=== PATIENT | female | born 1990 ===

== ENCOUNTER 2018-04-03 13:42 | Emergency (ER) | payer BC ==
[2018-04-03 14:48] LABS: SQUAMOUS EPITHIAL 2 /hpf (0-5); URINE BACTERIA MANY (<OCC); URINE BILIRUBIN NEGATIVE (NEGATIVE); URINE BLOOD NEGATIVE (NEGATIVE); URINE CLARITY Hazy (Clear); URINE COLOR Yellow (YELLOW); URINE GLUCOSE (UA) NORMAL (Normal); URINE LEUKOCYTE ESTERASE 1+ Leu/uL (Negative); URINE PROTEIN NEGATIVE (NEGATIVE); URINE UROBILINOGEN NORMAL mg/dL (0.2-1.0)
--- NOTE | 2018-04-03 15:45 | OBHP ---
Datetime: 04/03/2018 14:47 IP Adm Impression: , intrauterine ; No Active Labor; Intact Membranes IP Chief Complaint Other: breech per OBGYN, BPP and NST requested IP Admit Plan: Discharge home Admit Comment, IP Provider: 27 year old at 37.6 wga by first trimester ultrasound presents t o triage per request by her OBGYN physician due to his concerns for breech presentation requesting BP P and NST. Patient is feeling movement as usual, denies vaginal fluid, denies vaginal bleed. eHrb randle does not feel abdominal tightness or pain. Patient's course has been overall unremarka ble with the exception of pedal edema. Upon questioning, patient's states she had an ultrasound today at [facility] and got the prescrip tion from Dr. Fortune to come to triage yesterday. Patient's was told that the ultrasound was n ormal. but report still pending. Patient feels fine today though has some baseline chronic fatigue fr om her . She denies nausea, vomiting, headache, diarrhea, constipation, dysuria, increased u rinary frequency, chest pain, shortness of breath, palpitations. PMHx: hypothyroidism OBGYN hx: Jan 2016 Spontaneous miscarriage. Fetus just a few weeks old. No treatment done. PSHx: denies FHx: denies SocHx: Denies tobacco, EtOH and illicit drug use. 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 Medications: PNV and levothyroxine 50 mcg daily Allergies: NKDA Vitals: see above Physical exam: see above Labs: -UA: 1+ leukocyte esterase with bacteria and WBC A/P: -37.6 week with asymptomatic urinary tract infection: prescribed macrobid 100 mg PO BID x 7 days. -reactive NST -BPP within normal limits per patient's -no active labor upon examination Patient is to return to triage if she experiences vaginal fluid leakage, bleed, pain, decreased fe david movement. Attending notified Dr Fortune for plan of care upon her discharge. case discussed with Dr. Yvan Townsend DO PGY1 Pt seen and examined with Dr. Townsend and per Dr. Fortune's request, and agree with all of her findings and POC. Pelvic Type - PN: Adequate Extremities - PN: Abnormal Abdomen - PN: Normal Back - PN: Normal Breast - PN: Not Done Lungs - PN: Normal Heart - PN: Normal Thyroid - PN: Normal Neurologic - PN: Normal HEENT - PN: Not Done General - PN: Normal Presentation-Admit: Breech FHR - Baseline A Provider: 140 Membranes, Provider: Intact Contraction Comments Provider: None Comments, ACOG Physical Exam: 2+ pitting pedal edema Gestation - Est Wks by US: 37.6 IP Hx Assessment: No Care records available EGA AdmitDate IP: 37.6 Vital Signs Provider: Reviewed; Within Normal Limits IP Chief Complaint: Other NICHD Variability Prov Fetus A: Moderate 6-25bpm NICHD Accel Fetus A IP Provider: [id number] FHR Category Provider Fetus A: Category I Dilatation, Provider: 0 Effacement, Provider: 0 Genitourinary Exam: Normal DTRs - PN: Not Done
--- NOTE | 2018-04-03 15:47 | OBDCSUM ---
Datetime: 04/03/2018 14:51 Discharged to, Provider: Home Follow up at, Provider: Dr fortune Disch Instr Activity: Normal activity Disch Instr Diet: Regular Discharge Instructions, Provider: Routine instructions given Discharge Time: 04/03/2018 14:52 Follow up in weeks, Provider: 04/09/18 Disch Referrals: None Contraception discussed, Prov: No Disch Activity Restrictions: No lifting; No sexual activity; Nothing in vagina - [place], tampon s, douche Discharge Comment, Provider: 27 year old at 37.6 wga by first trimester ultrasound presents to triage per request by her OBGYN physician due to his concerns for breech presentation requesting B PP and NST. Patient is feeling movement as usual, denies vaginal fluid, denies vaginal bleed. P atient does not feel abdominal tightness or pain. Patient's course has been overall unremark able with the exception of pedal edema. Upon questioning, patient's states she had an ultrasound today at [facility] and got the prescrip tion from Dr. Fortune to come to triage yesterday. Patient's was told that the ultrasound was n ormal. but report still pending. Patient feels fine today though has some baseline chronic fatigue fr om her . She denies nausea, vomiting, headache, diarrhea, constipation, dysuria, increased u rinary frequency, chest pain, shortness of breath, palpitations. PMHx: hypothyroidism OBGYN hx: Jan 2016 Spontaneous miscarriage. Fetus just a few weeks old. No treatment done. PSHx: denies FHx: denies SocHx: Denies tobacco, EtOH and illicit drug use. 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 Medications: PNV and levothyroxine 50 mcg daily Allergies: NKDA Vitals: see above Physical exam: see above Labs: -UA: 1+ leukocyte esterase with bacteria and WBC A/P: -37.6 week with asymptomatic urinary tract infection: prescribed macrobid 100 mg PO BID x 7 days. -reactive NST -BPP within normal limits per patient's -no active labor upon examination Patient is to return to triage if she experiences vaginal fluid leakage, bleed, pain, decreased fe david movement. Attending notified Dr Fortune for plan of care upon her discharge. Discharged home in Satable and Satisfactory condition with instrucions and Rx for Macrobid Advised to increase po water intake. case discussed with Dr. Yvan Townsend DO PGY1 Pt seen and examined with Dr. Townsend and agree with her findings and POC Discharge Diagnosis Prov Other: Breech Presentation Sent from Dr. Fortune for NST
[2018-04-03 19:05] VITALS: BP 100/66; PULSE 87; RESP 18; TEMP 97.6
== END 2018-04-03 14:50 | disposition home or self-care (01) ==
LOC: C.EROB 13:42
DX: O23.43 Unspecified infection of urinary tract in pregnancy, third trimester (principal); Z3A.37 37 weeks gestation of pregnancy